=== PATIENT | male | born 1965 | race Caucasian/White ===

== ENCOUNTER 2020-02-10 11:09 | Inpatient (IN) | payer BC ==
[~2020-02-10] VITALS: Ht 193 cm; Wt 110.1 kg
[2020-02-10] VITALS (11 sets, daily range): BP systolic 102–150; BP diastolic 65–79
[2020-02-10] MEDS ORDERED: HEPARIN 25,000UTS/250ML PREMIX 250 ML IV ONE (11:15)
[2020-02-10] MEDS ORDERED: HEPARIN for IV BOLUS 10,000 UNIT/10 ML VIAL. IV ONE (11:15)
[2020-02-10] MEDS ORDERED: IODIXANOL 320 MG/ML 100 ML VIAL. ONE ×2 (11:20→11:59)
[2020-02-10] MEDS ORDERED: LIDOCAINE 1% Multi-Dose 20 ML VIAL. ONE (11:20)
--- NOTE | 2020-02-10 11:23 | PHYS DOC ---
Past Medical History Past Medical History: No Pertinent History Past Surgical History: No Surgical History Smoking Status: Current Some Day Smoker Alcohol Use: Occasionally Drug Use: None General Adult EDM: Chief Complaint: CHEST PAIN HPI: HPI: Patient is a 54 year old male who was brought here by EMS due to substernal chest pain, described as indigestion, bilateral arm tingling and numbness sensation with trouble breathing started about 30 minutes ago. EMS did an EKG and show ST segment elevation in lateral leads, they called here to activate code STEMI. Patient was given 325 mg of aspirin by EMS, no nitroglycerin was given. Patient felt much better now. Patient denies any history of diabetes or hypertension, no history of blood clot disorder, no family history of heart disease. Cardiac cath team and brick carrier Dr. Browning, came to ER to see patient and took the patient to [facility]. Review of Systems: Review of Systems: Constitutional: Denies fever or chills. [] Eyes: Denies change in visual acuity. [] HENT: Denies nasal congestion or sore throat. [] Respiratory: Denies cough or shortness of breath. [] Cardiovascular: Positive chest pain, no edema GI: Denies abdominal pain, nausea, vomiting, bloody stools or diarrhea. [] : Denies dysuria. [] Musculoskeletal: Denies back pain or joint pain. [] Integument: Denies rash. [] Neurologic: Denies headache, focal weakness or sensory changes. [] Endocrine: Denies polyuria or polydipsia. [] Lymphatic: Denies swollen glands. [] Psychiatric: Denies depression or anxiety. [] Heart Score: Risk Factors: Risk Factors: DM, Current or recent (<one month) smoker, HTN, HLP, family history of CAD, obesity. Risk Scores: Score 0 - 3: 2.5% MACE over next 6 weeks - Discharge Home Score 4 - 6: 20.3% MACE over next 6 weeks - Admit for Clinical Observation Score 7 - 10: 72.7% MACE over next 6 weeks - Early Invasive Strategies Current Medications: Current Medications Medications (Trade) Dose Ordered Sig/Les Start Time Stop Time Status Last Admin Dose Admin Heparin Sodium (Porcine) (Heparin Sodium) 4,000 unit 1X ONCE 02/10/20 11:15 02/10/20 11:16 UNV Heparin Sodium/ Dextrose 250 ml @ 0 mls/hr 1X ONCE 02/10/20 11:15 02/10/20 11:16 UNV Physical Exam: PE: Constitutional: Well developed, well nourished, no acute distress, non-toxic appearance. [] HENT: Normocephalic, atraumatic, bilateral external ears normal, oropharynx moist, no oral exudates, nose normal. [] Eyes: PERRLA, EOMI, conjunctiva normal, no discharge. [] Neck: Normal range of motion, no tenderness, supple, no stridor. [] Cardiovascular:Heart rate regular rhythm, no murmur [] Lungs & Thorax: Bilateral breath sounds clear to auscultation [] Abdomen: Bowel sounds normal, soft, no tenderness, no masses, no pulsatile masses. [] Skin: Warm, dry, no erythema, no rash. [] Back: No tenderness, no CVA tenderness. [] Extremities: No tenderness, no cyanosis, no clubbing, ROM intact, no edema. [] Neurologic: Alert and oriented X 3, normal motor function, normal sensory function, no focal deficits noted. [] Psychologic: Affect normal, judgement normal, mood normal. [] EKG: EKG: EKG was done at 1112, HEART RATE OF 137 BPM, ST SEGMENT ELEVATION IN V2, V3, V4,V5 Radiology/Procedures: Radiology/Procedures: [] Course & Med Decision Making: Course & Med Decision Making Pertinent Labs and Imaging studies reviewed. 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 The hospitalist doctor Dr. Danilo Parr was called who agrees TO admit the patient Dragon Disclaimer: Cyndi Disclaimer: This electronic medical record was generated, in whole or in part, using a voice recognition dictation system. Departure Departure Impression: Primary Impression: STEMI (ST elevation myocardial infarction) Disposition: ADMITTED INPATIENT Admitting Physician: FOSTER (DR. PARR) Condition: IMPROVED Justicifation of Admission Dx: Justifications for Admission: Justification of Admission Dx: Yes MN: Acute STEMI STONE MIRELES DO Feb 10, 2020 11:23
[2020-02-10 11:37] LABS: BASO # 0.2 x10^3/uL (0.0-0.2); BASO % 1 % (0-3); EOS # 0.1 x10^3/uL (0.0-0.7); EOS % 1 % (0-3); HEMOGLOBIN 16.5 g/dL (13.0-17.5); LYMPH # 1.9 x10^3/uL (1.0-4.8); LYMPH % 15 % (24-48); MEAN CORPUSCULAR HEMOGLOBIN 32 pg (25-35); MEAN CORPUSCULAR HGB CONC 34 g/dL (31-37); MEAN CORPUSCULAR VOLUME 93 fL (79-100); MONO # 0.7 x10^3/uL (0.0-1.1); MONO % 6 % (0-9); NEUT # 9.8 x10^3/uL (1.8-7.7); NEUT % 77 % (31-73); PLATELET COUNT 162 x10^3/uL (140-400); RED BLOOD COUNT 5.17 x10^6/uL (4.30-5.70); RED CELL DISTRIBUTION WIDTH 13.3 % (11.5-14.5); WHITE BLOOD COUNT 12.6 x10^3/uL (4.0-11.0)
[2020-02-10] MEDS ORDERED: BIVALIRUDIN 250 MG VIAL. IV ONE ×4 (11:44→12:15)
[2020-02-10] MEDS ORDERED: IODIXANOL 320 MG/ML 100 ML VIAL. IART ONE (11:45)
[2020-02-10] MEDS ORDERED: LIDOCAINE 1% Multi-Dose 20 ML VIAL. INJ ONE (11:45)
[2020-02-10] MEDS ORDERED: fentaNYL PF VIAL 100 MCG/2 ML VIAL IV ONE (11:45)
[2020-02-10] MEDS ORDERED: MIDAZOLAM HCL/PF 2 MG/2 ML VIAL. IV ONE (11:45)
[2020-02-10 11:48] LABS: PROTHROMBIN TIME PATIENT 12.3 SEC (11.7-14.0)
[2020-02-10 11:53] LABS: CREATININE 1.2 mg/dL (0.7-1.3); GFR 63.1; POTASSIUM 3.8 mmol/L (3.5-5.1)
[2020-02-10 11:59] LABS: ALBUMIN 3.4 g/dL (3.4-5.0); ALBUMIN/GLOBULIN RATIO 0.9 (1.0-1.7); MAGNESIUM 1.9 mg/dL (1.8-2.4); TOTAL BILIRUBIN 0.4 mg/dL (0.2-1.0); TOTAL PROTEIN 7.1 g/dL (6.4-8.2)
[2020-02-10] MEDS ORDERED: TICAGRELOR 90 MG TABLET. ONE (12:06)
[2020-02-10] MEDS ORDERED: TICAGRELOR 90 MG TABLET. PO ONE (12:15)
[2020-02-10] MEDS ORDERED: ONDANSETRON PF 4 MG/2 ML VIAL. ONE (12:18)
[2020-02-10] MEDS ORDERED: IV NORMAL SALINE 1000ML BAG 1,000 ML IV SCH (12:28)
[2020-02-10] MEDS ORDERED: ACETAMINOPHEN 325 MG TABLET. PO PRN (12:30)
[2020-02-10] MEDS ORDERED: LIDOCAINE 2% 100 MG/5 ML SYRINGE. IV PRN (12:30)
[2020-02-10] MEDS ORDERED: oxyCODONE/APAP 5/325 1 TAB TABLET PO PRN (12:30)
[2020-02-10] MEDS ORDERED: 0.9 % SODIUM CHLORIDE 10 ML DISP.SYRIN. IV PRN (12:30)
[2020-02-10] MEDS ORDERED: ONDANSETRON PF 4 MG/2 ML VIAL. IVP PRN ×2 (12:30→15:00)
[2020-02-10] MEDS ORDERED: AMIODARONE 150 MG in IV DEXTROSE 5% 100ML 100 ML IV PRN (12:30)
[2020-02-10] MEDS ORDERED: NITROGLYCERIN SUBLINGUAL 0.4 MG BOTTLE OF 25. SL PRN (12:30)
[2020-02-10] MEDS ORDERED: fentaNYL PF VIAL 100 MCG/2 ML VIAL IV PRN (12:30)
[2020-02-10] MEDS ORDERED: ONDANSETRON PF 4 MG/2 ML VIAL. IVP ONE (12:30)
[2020-02-10] MEDS ORDERED: ATROPINE 0.5 MG/5 ML DISP.SYRINGE. IV PRN (12:30)
[2020-02-10] MEDS ORDERED: MIDAZOLAM HCL/PF 2 MG/2 ML VIAL. ONE (12:57)
[2020-02-10] MEDS ORDERED: fentaNYL PF VIAL 100 MCG/2 ML VIAL ONE (12:57)
--- NOTE | 2020-02-10 14:55 | PDOC1 ---
History and Physical Date of Admission Date of Admission DATE: 02/10/20 TIME: 14:53 Identification/Chief Complaint Chief Complaint Epigastric pain Source Source: Patient History of Present Illness History of Present Illness Patient is a 54-year-old male with no significant past medical history who presents to the ER with complaints of worsening epigastric pain since this morning. He reports burning epigastric pain, with associated nausea, paresthesia of his hands, shortness of breath, and diaphoresis. States his symptoms were improved with burping. He initially attributed his symptoms to acid reflux, but contacted EMS when his symptoms did not improve. Patient was noted to have ST elevation on EKG and taken to the [facility]. Past Medical History Past Medical History Denies past medical history Past Surgical History Past Surgical History Dental procedures Family History Family History Denies significant family history Social History Smoke: 2 packs per day ALCOHOL: occassional Drugs: None Current Problem List Problem List Problems Medical Problems: (1) STEMI (ST elevation myocardial infarction) Status: Acute Current Medications Current Medications Current Medications Heparin Sodium (Porcine) (Heparin Sodium) 4,000 unit 1X ONCE IV Last administered on 02/10/20at 11:19; Start 02/10/20 at 11:15; Stop 02/10/20 at 11:43; Status DC Heparin Sodium/ Dextrose 250 ml @ 0 mls/hr 1X ONCE IV ; Start 02/10/20 at 11:15; Stop 02/10/20 at 11:43; Status DC Iodixanol (Visipaque 320) 100 ml STK-MED ONCE .ROUTE ; Start 02/10/20 at 11:20; Stop 02/10/20 at 11:20; Status DC Lidocaine HCl (Lidocaine 1% 20ml Vial) 20 ml STK-MED ONCE .ROUTE ; Start 02/10/20 at 11:20; Stop 02/10/20 at 11:20; Status DC Heparin Sodium/ Sodium Chloride 1,000 ml @ As Directed STK-MED ONCE .ROUTE ; Start 02/10/20 at 11:20; Stop 02/10/20 at 11:20; Status DC Heparin Sodium/ Sodium Chloride 500 ml @ As Directed STK-MED ONCE .ROUTE ; Start 02/10/20 at 11:35; Stop 02/10/20 at 11:36; Status DC Heparin Sodium/ Sodium Chloride (HEPARIN for ARTERIAL LINE FLUSH) 1,000 unit 1X ONCE IART Last administered on 02/10/20at 12:30; Start 02/10/20 at 11:45; Stop 02/10/20 at 11:46; Status DC Heparin Sodium/ Sodium Chloride (HEPARIN for ARTERIAL LINE FLUSH) 1,000 unit 1X ONCE IART Last administered on 02/10/20at 12:30; Start 02/10/20 at 11:45; Stop 02/10/20 at 11:46; Status DC Midazolam HCl (Versed) 2 mg 1X ONCE IV Last administered on 02/10/20at 12:32; Start 02/10/20 at 11:45; Stop 02/10/20 at 11:46; Status DC Fentanyl Citrate (Fentanyl 2ml Vial) 100 mcg 1X ONCE IV Last administered on 02/10/20at 12:33; Start 02/10/20 at 11:45; Stop 02/10/20 at 11:46; Status DC Iodixanol (Visipaque 320) 100 ml 1X ONCE IART Last administered on 02/10/20at 12:31; Start 02/10/20 at 11:45; Stop 02/10/20 at 11:46; Status DC Lidocaine HCl (Lidocaine 1% 20ml Vial) 20 ml 1X ONCE INJ Last administered on 02/10/20at 12:30; Start 02/10/20 at 11:45; Stop 02/10/20 at 11:46; Status DC Bivalirudin (Angiomax) 250 mg STK-MED ONCE IV ; Start 02/10/20 at 11:44; Stop 02/10/20 at 11:45; Status DC Dopamine HCl/ Dextrose 250 ml @ As Directed STK-MED ONCE IV ; Start 02/10/20 at 11:52; Stop 02/10/20 at 11:52; Status DC Dopamine HCl/ Dextrose 250 ml @ 21.3 mls/hr 1X ONCE IV Last administered on 02/10/20at 12:31; Start 02/10/20 at 12:00; Stop 02/10/20 at 23:44 Bivalirudin (Angiomax) 250 mg 1X ONCE IV Last administered on 02/10/20at 12:32; Start 02/10/20 at 12:00; Stop 02/10/20 at 12:01; Status DC Iodixanol (Visipaque 320) 100 ml STK-MED ONCE .ROUTE ; Start 02/10/20 at 11:59; Stop 02/10/20 at 11:59; Status DC Ticagrelor (Brilinta) 90 mg STK-MED ONCE .ROUTE ; Start 02/10/20 at 12:06; Stop 02/10/20 at 12:07; Status DC Bivalirudin (Angiomax) 250 mg STK-MED ONCE IV ; Start 02/10/20 at 12:07; Stop 02/10/20 at 12:07; Status DC Bivalirudin (Angiomax) 250 mg 1X ONCE IV Last administered on 02/10/20at 12:32; Start 02/10/20 at 12:15; Stop 02/10/20 at 12:16; Status DC Ticagrelor (Brilinta) 180 mg 1X ONCE PO Last administered on 02/10/20at 12:33; Start 02/10/20 at 12:15; Stop 02/10/20 at 12:16; Status DC Ondansetron HCl (Zofran) 4 mg STK-MED ONCE .ROUTE ; Start 02/10/20 at 12:18; Stop 02/10/20 at 12:18; Status DC Ondansetron HCl (Zofran) 4 mg 1X ONCE IVP Last administered on 02/10/20at 12:34; Start 02/10/20 at 12:30; Stop 02/10/20 at 12:31; Status DC Sodium Chloride (Normal Saline Flush) 3 ml QSHIFT PRN IV AFTER MEDS AND BLOOD DRAWS; Start 02/10/20 at 12:30 Sodium Chloride 1,000 ml @ 60 mls/hr [id number] IV ; Start 02/10/20 at 12:28; Stop 02/10/20 at 20:27 Aspirin (Ecotrin) 81 mg DAILYWBKFT PO ; Start 02/11/20 at 08:00 Clopidogrel Bisulfate (Plavix) 75 mg DAILYWBKFT PO ; Start 02/11/20 at 08:00 Metoprolol Tartrate (Lopressor) 12.5 mg BID PO ; Start 02/10/20 at 21:00 Lisinopril (Prinivil) 5 mg DAILY PO ; Start 02/11/20 at 09:00 Atorvastatin Calcium (Lipitor) 40 mg QHS PO ; Start 02/10/20 at 21:00 Acetaminophen (Tylenol) 650 mg PRN Q6HRS PRN PO MILD PAIN / TEMP > 100.3'F; Start 02/10/20 at 12:30 Fentanyl Citrate (Fentanyl 2ml Vial) 50 mcg PRN Q1HR PRN IV MODERATE OR SEVERE PAIN; Start 02/10/20 at 12:30 Ondansetron HCl (Zofran) 4 mg PRN Q6HRS PRN IVP NAUSEA/VOMITING; Start 02/10/20 at 12:30 Nitroglycerin (Nitrostat) 0.4 mg PRN Q5MIN PRN SL CHEST PAIN; Start 02/10/20 at 12:30 Amiodarone HCl 150 mg/Dextrose 103 ml @ 600 mls/hr 1X PRN PRN IV FOR VENTRICULAR TACHYCARDIA; Start 02/10/20 at 12:30 Lidocaine HCl (Lidocaine HCl 2% Abboject) 100 mg 1X PRN PRN IV FOR VENTRICULAR TACHYCARDIA; Start 02/10/20 at 12:30 Atropine Sulfate (ATROPINE 0.5mg SYRINGE) 0.5 mg PRN 1X PRN IV BRADYCARDIA; Start 02/10/20 at 12:30 Oxycodone/ Acetaminophen (Percocet 5/325) 1 tab PRN Q4HRS PRN PO MILD PAIN 1-3; Start 02/10/20 at 12:30 Fentanyl Citrate (Fentanyl 2ml Vial) 100 mcg STK-MED ONCE .ROUTE ; Start 02/10/20 at 12:57; Stop 02/10/20 at 12:57; Status DC Midazolam HCl (Versed) 2 mg STK-MED ONCE .ROUTE ; Start 02/10/20 at 12:57; Stop 02/10/20 at 12:58; Status DC Allergies Allergies: Coded Allergies: No Known Drug Allergies (Unverified , 02/10/20) ROS General: No: Chills, Fatigue PSYCHOLOGICAL ROS: No: Anxiety, Depression Eyes: No Blurry vision, No Loss of vision HEENT: No: Heacaches, Hearing change, Sinus pain, Sore Throat ALLERGY AND IMMUNOLOGY: No: Itchy/Watery Eyes, Nasal Congestion Hematological and Lymphatic: No: Bleeding Problems, Blood Clots Respiratory: YES: Shortness of breath; No: Cough, Pleuritic Pain Gastrointestinal: Yes Abdominal Pain Genitourinary: No Dysuria, No Frequency Musculoskeletal: No Joint Pain, No Joint Stiffness, No Joint Swelling Neurological: Yes Numbness/Tingling Skin: Yes Other (Diaphoresis); No Pruritus, No Rash Physical Exam General: Alert, Oriented X3, Cooperative, No acute distress HEENT: PERRLA Lungs: Clear to auscultation, Normal air movement Heart: RRR Cardiovascular: S1, S2 Abdomen: Normal bowel sounds, Soft Extremities: No clubbing, No cyanosis, No edema Skin: No rashes, No breakdown Neuro: Normal tone, Sensation intact Psych/Mental Status: Mental status NL Vitals Vitals Vital Signs Date Time Temp Pulse Resp B/P (MAP) Pulse Ox O2 Delivery O2 Flow Rate FiO2 02/10/20 13:33 98.0 78 16 147/76 (99) 95 Nasal Cannula 2.0 98.0 Labs Labs Laboratory Tests Test 02/10/20 11:20 White Blood Count 12.6 x10^3/uL (4.0-11.0) Red Blood Count 5.17 x10^6/uL (4.30-5.70) Hemoglobin 16.5 g/dL (13.0-17.5) Hematocrit 48.0 % (39.0-53.0) Mean Corpuscular Volume 93 fL (79-100) Mean Corpuscular Hemoglobin 32 pg (25-35) Mean Corpuscular Hemoglobin Concent 34 g/dL (31-37) Red Cell Distribution Width 13.3 % (11.5-14.5) Platelet Count 162 x10^3/uL (140-400) Neutrophils (%) (Auto) 77 % (31-73) Lymphocytes (%) (Auto) 15 % (24-48) Monocytes (%) (Auto) 6 % (0-9) Eosinophils (%) (Auto) 1 % (0-3) Basophils (%) (Auto) 1 % (0-3) Neutrophils # (Auto) 9.8 x10^3/uL (1.8-7.7) Lymphocytes # (Auto) 1.9 x10^3/uL (1.0-4.8) Monocytes # (Auto) 0.7 x10^3/uL (0.0-1.1) Eosinophils # (Auto) 0.1 x10^3/uL (0.0-0.7) Basophils # (Auto) 0.2 x10^3/uL (0.0-0.2) Prothrombin Time 12.3 SEC (11.7-14.0) Prothromb Time International Ratio 1.0 (0.8-1.1) Activated Partial Thromboplast Time 29 SEC (24-38) Sodium Level 138 mmol/L (136-145) Potassium Level 3.8 mmol/L (3.5-5.1) Chloride Level 107 mmol/L (98-107) Carbon Dioxide Level 23 mmol/L (21-32) Anion Gap 8 (6-14) Blood Urea Nitrogen 13 mg/dL (8-26) Creatinine 1.2 mg/dL (0.7-1.3) Estimated GFR (Cockcroft-Gault) 63.1 BUN/Creatinine Ratio 11 (6-20) Glucose Level 96 mg/dL (70-99) Calcium Level 9.0 mg/dL (8.5-10.1) Magnesium Level 1.9 mg/dL (1.8-2.4) Total Bilirubin 0.4 mg/dL (0.2-1.0) Aspartate Amino Transf (AST/SGOT) 10 U/L (15-37) Alanine Aminotransferase (ALT/SGPT) 23 U/L (16-63) Alkaline Phosphatase 58 U/L (46-116) Troponin I Quantitative 0.078 ng/mL (0.000-0.055) JF-Ygd-L-Type Natriuretic Peptide 36 pg/mL (0-124) Total Protein 7.1 g/dL (6.4-8.2) Albumin 3.4 g/dL (3.4-5.0) Albumin/Globulin Ratio 0.9 (1.0-1.7) Lipase 232 U/L (73-393) Laboratory Tests Test 02/10/20 11:20 White Blood Count 12.6 x10^3/uL (4.0-11.0) Red Blood Count 5.17 x10^6/uL (4.30-5.70) Hemoglobin 16.5 g/dL (13.0-17.5) Hematocrit 48.0 % (39.0-53.0) Mean Corpuscular Volume 93 fL (79-100) Mean Corpuscular Hemoglobin 32 pg (25-35) Mean Corpuscular Hemoglobin Concent 34 g/dL (31-37) Red Cell Distribution Width 13.3 % (11.5-14.5) Platelet Count 162 x10^3/uL (140-400) Neutrophils (%) (Auto) 77 % (31-73) Lymphocytes (%) (Auto) 15 % (24-48) Monocytes (%) (Auto) 6 % (0-9) Eosinophils (%) (Auto) 1 % (0-3) Basophils (%) (Auto) 1 % (0-3) Neutrophils # (Auto) 9.8 x10^3/uL (1.8-7.7) Lymphocytes # (Auto) 1.9 x10^3/uL (1.0-4.8) Monocytes # (Auto) 0.7 x10^3/uL (0.0-1.1) Eosinophils # (Auto) 0.1 x10^3/uL (0.0-0.7) Basophils # (Auto) 0.2 x10^3/uL (0.0-0.2) Prothrombin Time 12.3 SEC (11.7-14.0) Prothromb Time International Ratio 1.0 (0.8-1.1) Activated Partial Thromboplast Time 29 SEC (24-38) Sodium Level 138 mmol/L (136-145) Potassium Level 3.8 mmol/L (3.5-5.1) Chloride Level 107 mmol/L (98-107) Carbon Dioxide Level 23 mmol/L (21-32) Anion Gap 8 (6-14) Blood Urea Nitrogen 13 mg/dL (8-26) Creatinine 1.2 mg/dL (0.7-1.3) Estimated GFR (Cockcroft-Gault) 63.1 BUN/Creatinine Ratio 11 (6-20) Glucose Level 96 mg/dL (70-99) Calcium Level 9.0 mg/dL (8.5-10.1) Magnesium Level 1.9 mg/dL (1.8-2.4) Total Bilirubin 0.4 mg/dL (0.2-1.0) Aspartate Amino Transf (AST/SGOT) 10 U/L (15-37) Alanine Aminotransferase (ALT/SGPT) 23 U/L (16-63) Alkaline Phosphatase 58 U/L (46-116) Troponin I Quantitative 0.078 ng/mL (0.000-0.055) TR-Vkr-N-Type Natriuretic Peptide 36 pg/mL (0-124) Total Protein 7.1 g/dL (6.4-8.2) Albumin 3.4 g/dL (3.4-5.0) Albumin/Globulin Ratio 0.9 (1.0-1.7) Lipase 232 U/L (73-393) VTE Prophylaxis Ordered VTE Prophylaxis Devices: No VTE Pharmacological Prophylaxi: Yes Assessment/Plan Assessment/Plan STEMI Plan: Patient was evaluated in the ICU status post PCI with stent placement. Consults to cardiology. cafeteria monitor. Metoprolol, lisinopril, atorvastatin, aspirin, Plavix.. Nitroglycerin as needed, Percocet as needed, Zofran as needed. Patient notes his sister is a surrogate decision-maker. Full code. Justifications for Admission Other Justification CARMEL PARR MD Feb 10, 2020 14:55
[2020-02-10] MEDS: HEPARIN for SUB-Q USE 5,000 UNIT/ML VIAL. SQ SCH ×2 (15:30→21:58)
--- NOTE | 2020-02-10 15:46 | EKG ---
[facility] [address] [place] [address] Test Date: 2020-02-10 Test Time: 15:43:05 Pat Name: ALAN LEWIS Department: Room: Gender: M Philosophy Instructor: KRISS : 1965 Requested By: STONE MIRELES Order Number: [id number] Reading MD: Measurements Intervals Vendor Rate: 76 P: 62 TN: 166 QRS: -39 QRSD: 82 T: 35 QT: 322 QTc: 366 Interpretive Statements SINUS RHYTHM ABNORMAL LEFT AXIS DEVIATION LOW LIMB LEAD VOLTAGE QRS(T) CONTOUR ABNORMALITY CONSISTENT WITH ANTERIOR INFARCT PROBABLY OLD ABNORMAL ECG RI6.02 No previous ECG available for comparison
--- NOTE | 2020-02-10 18:28 | CARD ---
MR#: [id number] Date of Study: 02/10/2020 Ordering Physician: STONE MIRELES, Referring Physician: STONE MIRELES, Tech: Leelee Dahl RT (R) APPROVED REPORT Procedures Selective coronary angiogram Drug-eluting stent placement to an occluded mid LAD. The patient is a 54-year-old male who was brought to the emergency room with 1-1/2 hours of chest xi n. He was seen in the emergency room and an EKG showed anterior ST elevation consistent with an ST e levated myocardial infarction probably involving the LAD. He was treated with aspirin and IV hepari n. He has no home medications. He denied any history of coronary disease or congestive heart failur e. He denied any allergies to medications. Recommendation was for emergency cardiac catheterization with probable revascularization. Risk and benefits were discussed with the patient. He gave consen t to proceed. Informed consent was obtained and the patient was brought emergently to the catheterization lab. The area of the right femoral artery was prepared in the usual manner with Betadine, sterile draping a l ocal anesthetic. An 18-gauge needle was used to enter the right femoral artery, a wire placed and a 6 Maltese sheath placed over the wire. All catheter exchanges were over a J-wire. A 6 Maltese Masoud s diagnostic right catheter was advanced and used to engage the right coronary artery. Sequential in jections of various views were obtained. A XB 3.5 left guide was then advanced and used to engage th e left system. Sequential injections of various views were obtained. Images showed a mid occlusion of the LAD post the first diagonal. We proceeded to revascularize the vessel. Angiomax as per protocol was administered. A PT choice wire was used to cross the lesion. Initial d ilatations with a 2.5 x 15 Emerge balloon with 2 inflations at 8 logan for 15 seconds. Following this a 3.0 x 24 mm Promus Elite drug-eluting stent was deployed with 1 inflation at 15 logan for 15 seconds. Residual lesion was 0%. Flow was restored to a good size LAD which wrapped around the apex. The p atient was monitored for 10 minutes and then the guiding system was removed. A pigtail was advanced the ascending aorta. However we did not attempt to pass to the left ventricle secondary to increased arrhythmias with the patient. The catheter was removed from the patient. Injection of the sheath s howed normal placement. The sheath was removed and sealed with an Angio-Seal device. The patient wa s then moved to the ICU. Pain decreased to 1 out of 10. Rhythm and blood pressure stabilized. Findings. Hemodynamics. Aortic root pressure of 106/78. Coronaries. Left main. The left main was a normal size vessel with no lesions. Left anterior descending. The LAD was a moderate to moderately large vessel with a mid occlusion. Left circumflex. The left circumflex was a moderate size vessel with a mid 15% lesion. Right coronary artery. The right coronary is a moderate to moderately large vessel with proximal irr egular 40 to 50% lesion. <Conclusion> ST elevated myocardial infarction secondary to a mid LAD occlusion. Moderate irregular lesion in the right coronary artery. Successful stenting of the LAD lesion with a drug-eluting stent with 0% residual. Signed by : Juan Diego Sharif MD Electronically Approved : 02/10/2020 18:27:55
--- NOTE | 2020-02-10 18:33 | PDOC2 ---
CONSULT Date of Consult Date of Consult DATE: 02/10/20 TIME: 18:29 Reason for Consult Reason for Consult: Chest pain, ST elevated myocardial infarction Referring Physician Referring Physician: Dr. Desai Identification/Chief Complaint Chief Complaint Chest pain Source Source: Chart review, Patient History of Present Illness Reason for Visit: The patient is a 54-year-old male with a history of tobacco abuse who developed chest pain and paramedics were called. He was brought to the emergency room and an emergent EKG showed ST elevation in the anterior leads suggestive of an anterior wall myocardial infarction. Patient reports no history of coronary disease or congestive heart failure. He denies any home medications. He has no allergies. However he does smoke cigarettes. He was initially treated with aspirin and IV heparin with continued pain Past Medical History Cardiovascular: HTN Past Surgical History Past Surgical History: No pertinent history Family History Family History: Hypertension Social History 2 packs per day ALCOHOL: occassional Drugs: None Current Problem List Problem List Problems Medical Problems: (1) STEMI (ST elevation myocardial infarction) Status: Acute Current Medications Current Medications Current Medications Heparin Sodium (Porcine) (Heparin Sodium) 4,000 unit 1X ONCE IV Last administered on 02/10/20at 11:19; Start 02/10/20 at 11:15; Stop 02/10/20 at 11:43; Status DC Heparin Sodium/ Dextrose 250 ml @ 0 mls/hr 1X ONCE IV ; Start 02/10/20 at 11:15; Stop 02/10/20 at 11:43; Status DC Iodixanol (Visipaque 320) 100 ml STK-MED ONCE .ROUTE ; Start 02/10/20 at 11:20; Stop 02/10/20 at 11:20; Status DC Lidocaine HCl (Lidocaine 1% 20ml Vial) 20 ml STK-MED ONCE .ROUTE ; Start 02/10/20 at 11:20; Stop 02/10/20 at 11:20; Status DC Heparin Sodium/ Sodium Chloride 1,000 ml @ As Directed STK-MED ONCE .ROUTE ; Start 02/10/20 at 11:20; Stop 02/10/20 at 11:20; Status DC Heparin Sodium/ Sodium Chloride 500 ml @ As Directed STK-MED ONCE .ROUTE ; Start 02/10/20 at 11:35; Stop 02/10/20 at 11:36; Status DC Heparin Sodium/ Sodium Chloride (HEPARIN for ARTERIAL LINE FLUSH) 1,000 unit 1X ONCE IART Last administered on 02/10/20at 12:30; Start 02/10/20 at 11:45; Stop 02/10/20 at 11:46; Status DC Heparin Sodium/ Sodium Chloride (HEPARIN for ARTERIAL LINE FLUSH) 1,000 unit 1X ONCE IART Last administered on 02/10/20at 12:30; Start 02/10/20 at 11:45; Stop 02/10/20 at 11:46; Status DC Midazolam HCl (Versed) 2 mg 1X ONCE IV Last administered on 02/10/20at 12:32; Start 02/10/20 at 11:45; Stop 02/10/20 at 11:46; Status DC Fentanyl Citrate (Fentanyl 2ml Vial) 100 mcg 1X ONCE IV Last administered on 02/10/20at 12:33; Start 02/10/20 at 11:45; Stop 02/10/20 at 11:46; Status DC Iodixanol (Visipaque 320) 100 ml 1X ONCE IART Last administered on 02/10/20at 12:31; Start 02/10/20 at 11:45; Stop 02/10/20 at 11:46; Status DC Lidocaine HCl (Lidocaine 1% 20ml Vial) 20 ml 1X ONCE INJ Last administered on 02/10/20at 12:30; Start 02/10/20 at 11:45; Stop 02/10/20 at 11:46; Status DC Bivalirudin (Angiomax) 250 mg STK-MED ONCE IV ; Start 02/10/20 at 11:44; Stop 02/10/20 at 11:45; Status DC Dopamine HCl/ Dextrose 250 ml @ As Directed STK-MED ONCE IV ; Start 02/10/20 at 11:52; Stop 02/10/20 at 11:52; Status DC Dopamine HCl/ Dextrose 250 ml @ 21.3 mls/hr 1X ONCE IV Last administered on 02/10/20at 12:31; Start 02/10/20 at 12:00; Stop 02/10/20 at 23:44 Bivalirudin (Angiomax) 250 mg 1X ONCE IV Last administered on 02/10/20at 12:32; Start 02/10/20 at 12:00; Stop 02/10/20 at 12:01; Status DC Iodixanol (Visipaque 320) 100 ml STK-MED ONCE .ROUTE ; Start 02/10/20 at 11:59; Stop 02/10/20 at 11:59; Status DC Ticagrelor (Brilinta) 90 mg STK-MED ONCE .ROUTE ; Start 02/10/20 at 12:06; Stop 02/10/20 at 12:07; Status DC Bivalirudin (Angiomax) 250 mg STK-MED ONCE IV ; Start 02/10/20 at 12:07; Stop 02/10/20 at 12:07; Status DC Bivalirudin (Angiomax) 250 mg 1X ONCE IV Last administered on 02/10/20at 12:32; Start 02/10/20 at 12:15; Stop 02/10/20 at 12:16; Status DC Ticagrelor (Brilinta) 180 mg 1X ONCE PO Last administered on 02/10/20at 12:33; Start 02/10/20 at 12:15; Stop 02/10/20 at 12:16; Status DC Ondansetron HCl (Zofran) 4 mg STK-MED ONCE .ROUTE ; Start 02/10/20 at 12:18; Stop 02/10/20 at 12:18; Status DC Ondansetron HCl (Zofran) 4 mg 1X ONCE IVP Last administered on 02/10/20at 12:34; Start 02/10/20 at 12:30; Stop 02/10/20 at 12:31; Status DC Sodium Chloride (Normal Saline Flush) 3 ml QSHIFT PRN IV AFTER MEDS AND BLOOD DRAWS; Start 02/10/20 at 12:30 Sodium Chloride 1,000 ml @ 60 mls/hr [id number] IV Last administered on 02/10/20at 12:28; Start 02/10/20 at 12:28; Stop 02/10/20 at 20:27 Aspirin (Ecotrin) 81 mg DAILYWBKFT PO ; Start 02/11/20 at 08:00 Clopidogrel Bisulfate (Plavix) 75 mg DAILYWBKFT PO ; Start 02/11/20 at 08:00 Metoprolol Tartrate (Lopressor) 12.5 mg BID PO ; Start 02/10/20 at 21:00 Lisinopril (Prinivil) 5 mg DAILY PO ; Start 02/11/20 at 09:00 Atorvastatin Calcium (Lipitor) 40 mg QHS PO ; Start 02/10/20 at 21:00 Acetaminophen (Tylenol) 650 mg PRN Q6HRS PRN PO MILD PAIN / TEMP > 100.3'F; Start 02/10/20 at 12:30 Fentanyl Citrate (Fentanyl 2ml Vial) 50 mcg PRN Q1HR PRN IV MODERATE OR SEVERE PAIN; Start 02/10/20 at 12:30 Ondansetron HCl (Zofran) 4 mg PRN Q6HRS PRN IVP NAUSEA/VOMITING; Start 02/10/20 at 12:30 Nitroglycerin (Nitrostat) 0.4 mg PRN Q5MIN PRN SL CHEST PAIN; Start 02/10/20 at 12:30 Amiodarone HCl 150 mg/Dextrose 103 ml @ 600 mls/hr 1X PRN PRN IV FOR VENTRICULAR TACHYCARDIA; Start 02/10/20 at 12:30 Lidocaine HCl (Lidocaine HCl 2% Abboject) 100 mg 1X PRN PRN IV FOR VENTRICULAR TACHYCARDIA; Start 02/10/20 at 12:30 Atropine Sulfate (ATROPINE 0.5mg SYRINGE) 0.5 mg PRN 1X PRN IV BRADYCARDIA; Start 02/10/20 at 12:30 Oxycodone/ Acetaminophen (Percocet 5/325) 1 tab PRN Q4HRS PRN PO MILD PAIN 1-3; Start 02/10/20 at 12:30 Fentanyl Citrate (Fentanyl 2ml Vial) 100 mcg STK-MED ONCE .ROUTE ; Start 02/10/20 at 12:57; Stop 02/10/20 at 12:57; Status DC Midazolam HCl (Versed) 2 mg STK-MED ONCE .ROUTE ; Start 02/10/20 at 12:57; Stop 02/10/20 at 12:58; Status DC Ondansetron HCl (Zofran) 4 mg PRN Q6HRS PRN IVP NAUSEA/VOMITING; Start 02/10/20 at 15:00 Docusate Sodium (Colace) 100 mg BID PO ; Start 02/10/20 at 21:00 Heparin Sodium (Porcine) (Heparin Sodium) 5,000 unit Q8HRS SQ Last administered on 02/10/20at 15:30; Start 02/10/20 at 15:30 Allergies Allergies: Coded Allergies: No Known Drug Allergies (Unverified , 02/10/20) ROS Respiratory: YES: Shortness of breath Cardiovascular: yes Chest Pain Physical Exam General: moderate distress HEENT: Atraumatic Lungs: Clear to auscultation Heart: Regular rate Abdomen: Normal bowel sounds Vitals VITALS Vital Signs Date Time Temp Pulse Resp B/P (MAP) Pulse Ox O2 Delivery O2 Flow Rate FiO2 02/10/20 17:00 80 18 102/66 (78) 93 Room Air 02/10/20 16:00 98.3 98.3 02/10/20 13:33 2.0 Labs Labs Laboratory Tests Test 02/10/20 11:20 02/10/20 16:40 White Blood Count 12.6 x10^3/uL (4.0-11.0) Red Blood Count 5.17 x10^6/uL (4.30-5.70) Hemoglobin 16.5 g/dL (13.0-17.5) Hematocrit 48.0 % (39.0-53.0) Mean Corpuscular Volume 93 fL (79-100) Mean Corpuscular Hemoglobin 32 pg (25-35) Mean Corpuscular Hemoglobin Concent 34 g/dL (31-37) Red Cell Distribution Width 13.3 % (11.5-14.5) Platelet Count 162 x10^3/uL (140-400) Neutrophils (%) (Auto) 77 % (31-73) Lymphocytes (%) (Auto) 15 % (24-48) Monocytes (%) (Auto) 6 % (0-9) Eosinophils (%) (Auto) 1 % (0-3) Basophils (%) (Auto) 1 % (0-3) Neutrophils # (Auto) 9.8 x10^3/uL (1.8-7.7) Lymphocytes # (Auto) 1.9 x10^3/uL (1.0-4.8) Monocytes # (Auto) 0.7 x10^3/uL (0.0-1.1) Eosinophils # (Auto) 0.1 x10^3/uL (0.0-0.7) Basophils # (Auto) 0.2 x10^3/uL (0.0-0.2) Prothrombin Time 12.3 SEC (11.7-14.0) Prothromb Time International Ratio 1.0 (0.8-1.1) Activated Partial Thromboplast Time 29 SEC (24-38) Sodium Level 138 mmol/L (136-145) Potassium Level 3.8 mmol/L (3.5-5.1) Chloride Level 107 mmol/L (98-107) Carbon Dioxide Level 23 mmol/L (21-32) Anion Gap 8 (6-14) Blood Urea Nitrogen 13 mg/dL (8-26) Creatinine 1.2 mg/dL (0.7-1.3) Estimated GFR (Cockcroft-Gault) 63.1 BUN/Creatinine Ratio 11 (6-20) Glucose Level 96 mg/dL (70-99) Calcium Level 9.0 mg/dL (8.5-10.1) Magnesium Level 1.9 mg/dL (1.8-2.4) Total Bilirubin 0.4 mg/dL (0.2-1.0) Aspartate Amino Transf (AST/SGOT) 10 U/L (15-37) Alanine Aminotransferase (ALT/SGPT) 23 U/L (16-63) Alkaline Phosphatase 58 U/L (46-116) Troponin I Quantitative 0.078 ng/mL (0.000-0.055) 150.540 ng/mL (0.000-0.055) JI-Osv-N-Type Natriuretic Peptide 36 pg/mL (0-124) Total Protein 7.1 g/dL (6.4-8.2) Albumin 3.4 g/dL (3.4-5.0) Albumin/Globulin Ratio 0.9 (1.0-1.7) Lipase 232 U/L (73-393) Laboratory Tests Test 02/10/20 11:20 02/10/20 16:40 White Blood Count 12.6 x10^3/uL (4.0-11.0) Red Blood Count 5.17 x10^6/uL (4.30-5.70) Hemoglobin 16.5 g/dL (13.0-17.5) Hematocrit 48.0 % (39.0-53.0) Mean Corpuscular Volume 93 fL (79-100) Mean Corpuscular Hemoglobin 32 pg (25-35) Mean Corpuscular Hemoglobin Concent 34 g/dL (31-37) Red Cell Distribution Width 13.3 % (11.5-14.5) Platelet Count 162 x10^3/uL (140-400) Neutrophils (%) (Auto) 77 % (31-73) Lymphocytes (%) (Auto) 15 % (24-48) Monocytes (%) (Auto) 6 % (0-9) Eosinophils (%) (Auto) 1 % (0-3) Basophils (%) (Auto) 1 % (0-3) Neutrophils # (Auto) 9.8 x10^3/uL (1.8-7.7) Lymphocytes # (Auto) 1.9 x10^3/uL (1.0-4.8) Monocytes # (Auto) 0.7 x10^3/uL (0.0-1.1) Eosinophils # (Auto) 0.1 x10^3/uL (0.0-0.7) Basophils # (Auto) 0.2 x10^3/uL (0.0-0.2) Prothrombin Time 12.3 SEC (11.7-14.0) Prothromb Time International Ratio 1.0 (0.8-1.1) Activated Partial Thromboplast Time 29 SEC (24-38) Sodium Level 138 mmol/L (136-145) Potassium Level 3.8 mmol/L (3.5-5.1) Chloride Level 107 mmol/L (98-107) Carbon Dioxide Level 23 mmol/L (21-32) Anion Gap 8 (6-14) Blood Urea Nitrogen 13 mg/dL (8-26) Creatinine 1.2 mg/dL (0.7-1.3) Estimated GFR (Cockcroft-Gault) 63.1 BUN/Creatinine Ratio 11 (6-20) Glucose Level 96 mg/dL (70-99) Calcium Level 9.0 mg/dL (8.5-10.1) Magnesium Level 1.9 mg/dL (1.8-2.4) Total Bilirubin 0.4 mg/dL (0.2-1.0) Aspartate Amino Transf (AST/SGOT) 10 U/L (15-37) Alanine Aminotransferase (ALT/SGPT) 23 U/L (16-63) Alkaline Phosphatase 58 U/L (46-116) Troponin I Quantitative 0.078 ng/mL (0.000-0.055) 150.540 ng/mL (0.000-0.055) KZ-Zbj-S-Type Natriuretic Peptide 36 pg/mL (0-124) Total Protein 7.1 g/dL (6.4-8.2) Albumin 3.4 g/dL (3.4-5.0) Albumin/Globulin Ratio 0.9 (1.0-1.7) Lipase 232 U/L (73-393) Assessment/Plan Assessment/Plan 1. Chest pain. EKG is consistent with an acute anterior ST elevated myocardial infarction. Patient has been treated with aspirin and heparin. His pain has improved but continues. In this setting but I believe emergent catheterization with probable revascularization is indicated. The procedure as well as risks and benefits were discussed with patient. He gave consent to proceed. Patient will be brought emergently to the heart catheterization lab. 2. Tobacco abuse. 2 packs/day of smoking. We will further counseled the patient. 3. Unknown cholesterol level. Will check a cholesterol panel in the morning. Thank you for allowing us to participate in the care of your patient. ROMAN GRESHAM MD Feb 10, 2020 18:33
--- NOTE | 2020-02-10 20:00 | NUR ---
See assessment. Right groin dressing CDI. Site soft, no c/o pain or hematoma noted. Dopamine drip monitored by Darlene boyd RN.
[2020-02-10] MEDS: DOCUSATE SODIUM 100 MG CAPSULE. PO SCH (20:43)
[2020-02-10] MEDS: ATORVASTATIN CALCIUM 40 MG TABLET. PO SCH (20:43)
[2020-02-10] MEDS: METOPROLOL TART IMMED RELEASE 25 MG TABLET. PO SCH (20:44)
[2020-02-11] VITALS (15 sets, daily range): BP systolic 90–119; BP diastolic 64–74
[2020-02-11] MEDS: HEPARIN for SUB-Q USE 5,000 UNIT/ML VIAL. SQ SCH ×3 (05:52→20:57)
--- NOTE | 2020-02-11 06:14 | EKG ---
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 (Measurements might be questionable) RI6.02 No previous ECG available for comparison
[2020-02-11] MEDS: ASPIRIN ENTERIC COATED 81 MG TABLET.DR. PO SCH (08:59)
[2020-02-11] MEDS: LISINOPRIL 5 MG TABLET. PO SCH (09:00)
[2020-02-11] MEDS: DOCUSATE SODIUM 100 MG CAPSULE. PO SCH ×2 (09:00→20:54)
[2020-02-11] MEDS: CLOPIDOGREL BISULFATE 75 MG TABLET PO SCH (09:00)
[2020-02-11] MEDS: METOPROLOL TART IMMED RELEASE 25 MG TABLET. PO SCH (09:02)
--- NOTE | 2020-02-11 09:41 | EKG ---
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
[2020-02-11 09:56] LABS: BASO # 0.1 x10^3/uL (0.0-0.2); BASO % 1 % (0-3); EOS # 0.1 x10^3/uL (0.0-0.7); EOS % 1 % (0-3); HEMATOCRIT 43.8 % (39.0-53.0); HEMOGLOBIN 15.1 g/dL (13.0-17.5); LYMPH # 1.5 x10^3/uL (1.0-4.8); LYMPH % 21 % (24-48); MEAN CORPUSCULAR HEMOGLOBIN 32 pg (25-35); MEAN CORPUSCULAR HGB CONC 34 g/dL (31-37); MEAN CORPUSCULAR VOLUME 93 fL (79-100); MONO # 0.4 x10^3/uL (0.0-1.1); MONO % 6 % (0-9); NEUT # 5.3 x10^3/uL (1.8-7.7); NEUT % 72 % (31-73); PLATELET COUNT 146 x10^3/uL (140-400); RED BLOOD COUNT 4.71 x10^6/uL (4.30-5.70); RED CELL DISTRIBUTION WIDTH 13.1 % (11.5-14.5); WHITE BLOOD COUNT 7.3 x10^3/uL (4.0-11.0)
[2020-02-11 10:21] LABS: CALCIUM 8.9 mg/dL (8.5-10.1); CHOLESTEROL/HDL RATIO 7.6; CREATININE 1.2 mg/dL (0.7-1.3); GFR 63.1; POTASSIUM 3.5 mmol/L (3.5-5.1)
--- NOTE | 2020-02-11 11:14 | NUR ---
SS following for discharge planning. SS reviewed pt chart and discussed with pt RN. Pt is from home and is currently on room air. Cardiology following. Pt had heart cath on 02/10/2020. SS will continue to follow for discharge planning.
--- NOTE | 2020-02-11 11:20 | PDOC ---
[employer] PROGRESS NOTE Date of Service DOS: DATE: 02/11/20 TIME: 11:18 Chief Complaint Chief Complaint Acute myocardial infarction with max troponin 150 Status post cardiac cath with stent placement History of Present Illness History of Present Illness 02/11/2020 Patient seen and examined in the ICU His troponin peaked at 150 is now trending down to 83 Chart reviewed Discussed with case management Discussed with RN Vitals/I&O Vitals/I&O: Vital Signs Date Time Temp Pulse Resp B/P (MAP) Pulse Ox O2 Delivery O2 Flow Rate FiO2 02/11/20 09:02 66 106/73 02/11/20 08:00 Room Air 02/11/20 06:19 12 94 02/11/20 04:00 99.0 99.0 02/10/20 13:33 2.0 I & O 02/10/20 02/10/20 02/11/20 15:00 23:00 07:00 Intake Total 0 ml 0 ml 1263 ml Output Total 300 ml 225 ml 550 ml Balance -300 ml -225 ml 713 ml Physical Exam General: moderate distress Heart: Regular rate Abdomen: Normal bowel sounds Extremities: No clubbing, No cyanosis, No edema Skin: No rashes, No breakdown Labs Labs: Laboratory Tests Test 02/10/20 11:20 02/10/20 16:40 02/10/20 22:10 02/11/20 09:35 White Blood Count 12.6 x10^3/uL (4.0-11.0) 7.3 x10^3/uL (4.0-11.0) Red Blood Count 5.17 x10^6/uL (4.30-5.70) 4.71 x10^6/uL (4.30-5.70) Hemoglobin 16.5 g/dL (13.0-17.5) 15.1 g/dL (13.0-17.5) Hematocrit 48.0 % (39.0-53.0) 43.8 % (39.0-53.0) Mean Corpuscular Volume 93 fL (79-100) 93 fL (79-100) Mean Corpuscular Hemoglobin 32 pg (25-35) 32 pg (25-35) Mean Corpuscular Hemoglobin Concent 34 g/dL (31-37) 34 g/dL (31-37) Red Cell Distribution Width 13.3 % (11.5-14.5) 13.1 % (11.5-14.5) Platelet Count 162 x10^3/uL (140-400) 146 x10^3/uL (140-400) Neutrophils (%) (Auto) 77 % (31-73) 72 % (31-73) Lymphocytes (%) (Auto) 15 % (24-48) 21 % (24-48) Monocytes (%) (Auto) 6 % (0-9) 6 % (0-9) Eosinophils (%) (Auto) 1 % (0-3) 1 % (0-3) Basophils (%) (Auto) 1 % (0-3) 1 % (0-3) Neutrophils # (Auto) 9.8 x10^3/uL (1.8-7.7) 5.3 x10^3/uL (1.8-7.7) Lymphocytes # (Auto) 1.9 x10^3/uL (1.0-4.8) 1.5 x10^3/uL (1.0-4.8) Monocytes # (Auto) 0.7 x10^3/uL (0.0-1.1) 0.4 x10^3/uL (0.0-1.1) Eosinophils # (Auto) 0.1 x10^3/uL (0.0-0.7) 0.1 x10^3/uL (0.0-0.7) Basophils # (Auto) 0.2 x10^3/uL (0.0-0.2) 0.1 x10^3/uL (0.0-0.2) Prothrombin Time 12.3 SEC (11.7-14.0) Prothromb Time International Ratio 1.0 (0.8-1.1) Activated Partial Thromboplast Time 29 SEC (24-38) Sodium Level 138 mmol/L (136-145) 137 mmol/L (136-145) Potassium Level 3.8 mmol/L (3.5-5.1) 3.5 mmol/L (3.5-5.1) Chloride Level 107 mmol/L (98-107) 104 mmol/L (98-107) Carbon Dioxide Level 23 mmol/L (21-32) 23 mmol/L (21-32) Anion Gap 8 (6-14) 10 (6-14) Blood Urea Nitrogen 13 mg/dL (8-26) 13 mg/dL (8-26) Creatinine 1.2 mg/dL (0.7-1.3) 1.2 mg/dL (0.7-1.3) Estimated GFR (Cockcroft-Gault) 63.1 63.1 BUN/Creatinine Ratio 11 (6-20) Glucose Level 96 mg/dL (70-99) 117 mg/dL (70-99) Calcium Level 9.0 mg/dL (8.5-10.1) 8.9 mg/dL (8.5-10.1) Magnesium Level 1.9 mg/dL (1.8-2.4) 2.0 mg/dL (1.8-2.4) Total Bilirubin 0.4 mg/dL (0.2-1.0) Aspartate Amino Transf (AST/SGOT) 10 U/L (15-37) Alanine Aminotransferase (ALT/SGPT) 23 U/L (16-63) Alkaline Phosphatase 58 U/L (46-116) Troponin I Quantitative 0.078 ng/mL (0.000-0.055) 150.540 ng/mL (0.000-0.055) 84.377 ng/mL (0.000-0.055) FP-Ens-H-Type Natriuretic Peptide 36 pg/mL (0-124) Total Protein 7.1 g/dL (6.4-8.2) Albumin 3.4 g/dL (3.4-5.0) Albumin/Globulin Ratio 0.9 (1.0-1.7) Lipase 232 U/L (73-393) Triglycerides Level 102 mg/dL (0-150) Cholesterol Level 235 mg/dL (0-200) LDL Cholesterol, Calculated 184 mg/dL (0-100) VLDL Cholesterol, Calculated 20 mg/dL (0-40) Non-HDL Cholesterol Calculated 204 mg/dL (0-129) HDL Cholesterol 31 mg/dL (40-60) Cholesterol/HDL Ratio 7.6 Thyroid Stimulating Hormone (TSH) 1.039 uIU/mL (0.358-3.74) Assessment and Plan Assessmemt and Plan Problems Medical Problems: (1) STEMI (ST elevation myocardial infarction) Status: Acute Acute myocardial infarction with max troponin 150 Status post cardiac cath with stent placement Plan Cardiac monitoring Wound care Cardiac cocktail including statins beta-blockers DAVID inhibitor's antiplatelet drugs plus minus nitro plus minus diuretics Appreciate cardiac rapid intervention Home meds DVT prophylaxis Full code Comment Review of Relevant I have reviewed the following items hari (where applicable) has been applied. Medications: Current Medications Medications (Trade) Dose Ordered Sig/Les Route PRN Reason Start Time Stop Time Status Last Admin Dose Admin Heparin Sodium/ Sodium Chloride (HEPARIN for ARTERIAL LINE FLUSH) 1,000 unit 1X ONCE IART 02/10/20 11:45 02/10/20 11:46 DC 02/10/20 12:30 Heparin Sodium/ Sodium Chloride (HEPARIN for ARTERIAL LINE FLUSH) 1,000 unit 1X ONCE IART 02/10/20 11:45 02/10/20 11:46 DC 02/10/20 12:30 Midazolam HCl (Versed) 2 mg 1X ONCE IV 02/10/20 11:45 02/10/20 11:46 DC 02/10/20 12:32 Fentanyl Citrate (Fentanyl 2ml Vial) 100 mcg 1X ONCE IV 02/10/20 11:45 02/10/20 11:46 DC 02/10/20 12:33 Iodixanol (Visipaque 320) 100 ml 1X ONCE IART 02/10/20 11:45 02/10/20 11:46 DC 02/10/20 12:31 Lidocaine HCl (Lidocaine 1% 20ml Vial) 20 ml 1X ONCE INJ 02/10/20 11:45 02/10/20 11:46 DC 02/10/20 12:30 Dopamine HCl/ Dextrose 250 ml @ 21.3 mls/hr 1X ONCE IV 02/10/20 12:00 02/10/20 23:44 DC 02/10/20 12:31 Bivalirudin (Angiomax) 250 mg 1X ONCE IV 02/10/20 12:00 02/10/20 12:01 DC 02/10/20 12:32 Bivalirudin (Angiomax) 250 mg 1X ONCE IV 02/10/20 12:15 02/10/20 12:16 DC 02/10/20 12:32 Ticagrelor (Brilinta) 180 mg 1X ONCE PO 02/10/20 12:15 02/10/20 12:16 DC 02/10/20 12:33 Ondansetron HCl (Zofran) 4 mg 1X ONCE IVP 02/10/20 12:30 02/10/20 12:31 DC 02/10/20 12:34 Sodium Chloride 1,000 ml @ 60 mls/hr [id number] IV 02/10/20 12:28 02/10/20 20:27 DC 02/10/20 12:28 Aspirin (Ecotrin) 81 mg DAILYWBKFT PO 02/11/20 08:00 02/11/20 08:59 Clopidogrel Bisulfate (Plavix) 75 mg DAILYWBKFT PO 02/11/20 08:00 02/11/20 09:00 Metoprolol Tartrate (Lopressor) 12.5 mg BID PO 02/10/20 21:00 02/11/20 09:02 Lisinopril (Prinivil) 5 mg DAILY PO 02/11/20 09:00 02/11/20 09:00 Atorvastatin Calcium (Lipitor) 40 mg QHS PO 02/10/20 21:00 02/10/20 20:43 Docusate Sodium (Colace) 100 mg BID PO 02/10/20 21:00 02/11/20 09:00 Heparin Sodium (Porcine) (Heparin Sodium) 5,000 unit Q8HRS SQ 02/10/20 15:30 02/11/20 05:52 Dopamine HCl/ Dextrose 250 ml @ 20.513 mls/ hr 1X ONCE IV 02/11/20 07:45 02/11/20 19:56 02/11/20 08:42 Justifications for Admission Other Justification ANNY ZAPATA III DO Feb 11, 2020 11:20
[2020-02-11] MEDS ORDERED: FUROSEMIDE 40 MG TABLET. PO PRN (13:00)
[2020-02-11] MEDS ORDERED: POTASSIUM CHLORIDE 20 MEQ TABLET.ER. PO ONE (13:00)
--- NOTE | 2020-02-11 13:02 | PDOC ---
[facility] Progress Notes Date and Time Date of Service 02/11/2020 Time of Evaluation 1100 Subjective Subjective: No Chest Pain, No shortness of breath, No Palpitations Vitals Vitals Vital Signs Date Time Temp Pulse Resp B/P (MAP) Pulse Ox O2 Delivery O2 Flow Rate FiO2 02/11/20 12:00 72 16 105/72 (83) Room Air 02/11/20 10:00 96 02/11/20 08:00 98.6 98.6 02/10/20 13:33 2.0 Weight Weight [ ] Input and Output Intake and Output Intake and Output 02/11/20 07:00 Intake Total 1263 ml Output Total 1075 ml Balance 188 ml Intake Oral 400 ml IV Total 863 ml Output Urine Total 1075 ml Laboratory Labs Laboratory Tests Test 02/10/20 16:40 02/10/20 22:10 02/11/20 09:35 Troponin I Quantitative 150.540 ng/mL (0.000-0.055) 84.377 ng/mL (0.000-0.055) White Blood Count 7.3 x10^3/uL (4.0-11.0) Red Blood Count 4.71 x10^6/uL (4.30-5.70) Hemoglobin 15.1 g/dL (13.0-17.5) Hematocrit 43.8 % (39.0-53.0) Mean Corpuscular Volume 93 fL (79-100) Mean Corpuscular Hemoglobin 32 pg (25-35) Mean Corpuscular Hemoglobin Concent 34 g/dL (31-37) Red Cell Distribution Width 13.1 % (11.5-14.5) Platelet Count 146 x10^3/uL (140-400) Neutrophils (%) (Auto) 72 % (31-73) Lymphocytes (%) (Auto) 21 % (24-48) Monocytes (%) (Auto) 6 % (0-9) Eosinophils (%) (Auto) 1 % (0-3) Basophils (%) (Auto) 1 % (0-3) Neutrophils # (Auto) 5.3 x10^3/uL (1.8-7.7) Lymphocytes # (Auto) 1.5 x10^3/uL (1.0-4.8) Monocytes # (Auto) 0.4 x10^3/uL (0.0-1.1) Eosinophils # (Auto) 0.1 x10^3/uL (0.0-0.7) Basophils # (Auto) 0.1 x10^3/uL (0.0-0.2) Sodium Level 137 mmol/L (136-145) Potassium Level 3.5 mmol/L (3.5-5.1) Chloride Level 104 mmol/L (98-107) Carbon Dioxide Level 23 mmol/L (21-32) Anion Gap 10 (6-14) Blood Urea Nitrogen 13 mg/dL (8-26) Creatinine 1.2 mg/dL (0.7-1.3) Estimated GFR (Cockcroft-Gault) 63.1 Glucose Level 117 mg/dL (70-99) Calcium Level 8.9 mg/dL (8.5-10.1) Magnesium Level 2.0 mg/dL (1.8-2.4) Triglycerides Level 102 mg/dL (0-150) Cholesterol Level 235 mg/dL (0-200) LDL Cholesterol, Calculated 184 mg/dL (0-100) VLDL Cholesterol, Calculated 20 mg/dL (0-40) Non-HDL Cholesterol Calculated 204 mg/dL (0-129) HDL Cholesterol 31 mg/dL (40-60) Cholesterol/HDL Ratio 7.6 Thyroid Stimulating Hormone (TSH) 1.039 uIU/mL (0.358-3.74) Physical Exam HEENT: Neck Supple W Full Motion Chest: Symmetric LUNGS: Clear to Auscultation Heart: S1S2, RRR (SR) Abdomen: Soft N/T Extremities: No Edema, No Calf Tenderness Neurology: alert, oriented, follow commands Other Exams right groin arteriotomy site intact, no erythema or swelling, neurovascular status to bilateral LE intact Assessment Assessment 1. Anterior STEMI: S/P PCI/ROXI to mid LAD 2. ICM: EF 25%, compensated 3. HLP 4. Tobaccoism Recommendations 1. ASA/plavix. 2, Lipitor, start on toprol and lisinopril. BP at low end currently but stable. No CHF symptoms. Lasix PRN K replacement today 3. Cardiac rehab. HF education. Dietitian consult. 4. [facility] as an outpt for SCD prevention and reeval for AICD consideration in 3 months after sufficient optimization 5. Smoking cessation 6. 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 He will go back to [place] once discharge. Discussed cardiology referral over there and need for cardiac rehab. Justicifation of Admission Dx: Justifications for Admission: Justification of Admission Dx: Yes IN: Acute STEMI AGA CANALES APRN Feb 11, 2020 13:01
--- NOTE | 2020-02-11 13:18 | NUR ---
transfered to rm 208 per w/c in stable cond Had phone. Rtgroin intact. DR Caal talked with him about no driving his truck back to [place]. He is in contact with his sister from [facility]
--- NOTE | 2020-02-11 15:31 | CARD ---
MR#: [id number] Date of Study: 02/11/2020 Ordering Physician: ROMAN SHARIF, Referring Physician: ROMAN SHARIF, Tech: Lara Colindres [facility] APPROVED REPORT EXAM: Two-dimensional and M-mode echocardiogram with Doppler and color Doppler. Other Information Quality : Good INDICATION STEMI 2D DIMENSIONS RVDd2.5 (2.9-3.5cm)Left Atrium(2D)2.7 (1.6-4.0cm) IVSd1.0 (0.7-1.1cm)Aortic Root(2D)3.4 (2.0-3.7cm) LVDd5.0 (3.9-5.9cm)LVOT Diameter2.4 (1.8-2.4cm) PWd0.8 (0.7-1.1cm)LVDs4.5 (2.5-4.0cm) FS (%) 9.6 %SV24.7 ml Aortic Valve AoV Peak Rafael.107.9cm/sAoV VTI20.7cm AO Peak GR.4.7mmHgLVOT VTI 13.50cm AO Mean GR.3mmHgAVA (VTI)2.90cm2 Mitral Valve MV E Juszlxiq93.3cm/sMV DECEL [id number] MV A Clhclrpj80.7cm/sE/A Ratio0.9 TDI Lateral E' P. V3.60cm/sMedial E' P. V5.21cm/s E/Lateral E'12.6E/Medial E'8.7 Tricuspid Valve TR P. Psbylgca153wj/sRAP [id number] TR Peak Gr.23mdLvZEKX46xvGc Pulmonary Vein S1 Ggmpxhgh63.1cm/sS2 Wmtmfske11.44cm/s D2 Wafxifys08.4cm/s LEFT VENTRICLE The Left Ventricle is borderline dilated. There is normal left ventricular wall thickness. Left ventr icle systolic function is severely impaired. The Ejection Fraction is estimated at 25-30%. There is s evere hypokinesis of the distal septum, distal lateral wall and apex. Transmitral Doppler flow patter n is Grade I-abnormal relaxation pattern. RIGHT VENTRICLE The right ventricle is normal size. The right ventricular systolic function is normal. ATRIA The left atrium size is normal. The right atrium size is normal. The interatrial septum is intact wit h no evidence for an atrial septal defect or patent foramen ovale as noted on 2-D or Doppler imaging. AORTIC VALVE The aortic valve is normal in structure and function. Doppler and Color Flow revealed no significant aortic regurgitation. There is no significant aortic valvular stenosis. MITRAL VALVE The mitral valve is normal in structure and function. There is no evidence of mitral valve prolapse. There is no mitral valve stenosis. Doppler and Color Flow revealed trace mitral valve regurgitation. TRICUSPID VALVE The tricuspid valve is normal in structure and function. Doppler and Color Flow revealed trace tricus pid regurgitation. The PA pressure was estimated at 27 mmHg. There is no tricuspid valve stenosis. PULMONIC VALVE The pulmonic valve is not well visualized. Doppler and Color Flow revealed trace pulmonic valvular re gurgitation. There is no pulmonic valvular stenosis. GREAT VESSELS The aortic root is normal in size. The ascending aorta is normal in size. The IVC is dilated and camilla apses >50% with inspiration. PERICARDIAL EFFUSION There is no evidence of significant pericardial effusion. Critical Notification Critical Value: No <Conclusion> The Left Ventricle is borderline dilated. Left ventricle systolic function is severely impaired. The Ejection Fraction is estimated at 25-30%. There is severe hypokinesis of the distal septum, distal lateral wall and apex. Doppler and Color Flow revealed no significant aortic regurgitation. There is no significant aortic valvular stenosis. Doppler and Color Flow revealed trace mitral valve regurgitation. Doppler and Color Flow revealed trace tricuspid regurgitation. The PA pressure was estimated at 27 mmHg. Signed by : Roman Sharif MD Electronically Approved : 02/11/2020 15:30:57
[2020-02-11] MEDS: ATORVASTATIN CALCIUM 40 MG TABLET. PO SCH (20:54)
[2020-02-12 02:52] VITALS: BP 118/59
[2020-02-12] MEDS: HEPARIN for SUB-Q USE 5,000 UNIT/ML VIAL. SQ SCH ×2 (06:10→14:00)
[2020-02-12 07:00] VITALS: BP 101/69
[2020-02-12] MEDS: CLOPIDOGREL BISULFATE 75 MG TABLET PO SCH (08:22)
[2020-02-12] MEDS: ASPIRIN ENTERIC COATED 81 MG TABLET.DR. PO SCH (08:22)
[2020-02-12] MEDS: LISINOPRIL 5 MG TABLET. PO SCH (08:23)
[2020-02-12] MEDS: DOCUSATE SODIUM 100 MG CAPSULE. PO SCH ×2 (08:23→17:44)
--- NOTE | 2020-02-12 08:38 | PDOC ---
CARDIO Progress Notes Date and Time Date of Service 02/12/2020 Time of Evaluation 1020 Subjective Subjective: No Chest Pain, No shortness of breath, No Palpitations Vitals Vitals Vital Signs Date Time Temp Pulse Resp B/P (MAP) Pulse Ox O2 Delivery O2 Flow Rate FiO2 02/12/20 08:23 93 101/69 02/12/20 02:52 98.1 18 95 Room Air 98.1 Weight Weight [ ] Input and Output Intake and Output Intake and Output 02/12/20 07:00 Intake Total 430 ml Output Total 200 ml Balance 230 ml Intake Oral 430 ml Output Urine Total 200 ml Laboratory Labs Laboratory Tests Test 02/11/20 09:35 White Blood Count 7.3 x10^3/uL (4.0-11.0) Red Blood Count 4.71 x10^6/uL (4.30-5.70) Hemoglobin 15.1 g/dL (13.0-17.5) Hematocrit 43.8 % (39.0-53.0) Mean Corpuscular Volume 93 fL (79-100) Mean Corpuscular Hemoglobin 32 pg (25-35) Mean Corpuscular Hemoglobin Concent 34 g/dL (31-37) Red Cell Distribution Width 13.1 % (11.5-14.5) Platelet Count 146 x10^3/uL (140-400) Neutrophils (%) (Auto) 72 % (31-73) Lymphocytes (%) (Auto) 21 % (24-48) Monocytes (%) (Auto) 6 % (0-9) Eosinophils (%) (Auto) 1 % (0-3) Basophils (%) (Auto) 1 % (0-3) Neutrophils # (Auto) 5.3 x10^3/uL (1.8-7.7) Lymphocytes # (Auto) 1.5 x10^3/uL (1.0-4.8) Monocytes # (Auto) 0.4 x10^3/uL (0.0-1.1) Eosinophils # (Auto) 0.1 x10^3/uL (0.0-0.7) Basophils # (Auto) 0.1 x10^3/uL (0.0-0.2) Sodium Level 137 mmol/L (136-145) Potassium Level 3.5 mmol/L (3.5-5.1) Chloride Level 104 mmol/L (98-107) Carbon Dioxide Level 23 mmol/L (21-32) Anion Gap 10 (6-14) Blood Urea Nitrogen 13 mg/dL (8-26) Creatinine 1.2 mg/dL (0.7-1.3) Estimated GFR (Cockcroft-Gault) 63.1 Glucose Level 117 mg/dL (70-99) Calcium Level 8.9 mg/dL (8.5-10.1) Magnesium Level 2.0 mg/dL (1.8-2.4) Triglycerides Level 102 mg/dL (0-150) Cholesterol Level 235 mg/dL (0-200) LDL Cholesterol, Calculated 184 mg/dL (0-100) VLDL Cholesterol, Calculated 20 mg/dL (0-40) Non-HDL Cholesterol Calculated 204 mg/dL (0-129) HDL Cholesterol 31 mg/dL (40-60) Cholesterol/HDL Ratio 7.6 Thyroid Stimulating Hormone (TSH) 1.039 uIU/mL (0.358-3.74) Physical Exam HEENT: Neck Supple W Full Motion Chest: Symmetric LUNGS: Clear to Auscultation Heart: S1S2, RRR (SR without significant ectopies) Abdomen: Soft N/T Extremities: No Edema, No Calf Tenderness Neurology: alert, oriented, follow commands Assessment Assessment 1. Anterior STEMI: S/P PCI/ROXI to mid LAD 2. ICM: EF 25%, compensated. BP is well controlled 3. HLP 4. Tobaccoism Recommendations 1. 325 ECASA/plavix 75 mg daily. May convert to ECASA 81 and brilinta bid if he does have health ins. SS consult for verification 2, Lipitor, toprol XL, lisinopril. Lasix PRN for CHF 3. Cardiac rehab. HF education. Dietitian consult. 4. Lifevest for SCD prevention and reeval for AICD consideration in 3 months after sufficient optimization 5. Smoking cessation 6. 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 He will stay with his sister first for a 1-2 weeks then go back to [place] once discharge. Discussed cardiology referral over there and need for cardiac rehab. Justicifation of Admission Dx: Justifications for Admission: Justification of Admission Dx: Yes NH: Acute STEMI AGA CANALES [employer]UCK [employer] Feb 12, 2020 08:38
[2020-02-12] MEDS ORDERED: ASPIRIN ENTERIC COATED 325 MG TABLET.DR. PO SCH (08:45)
[2020-02-12] MEDS ORDERED: METOPROLOL SUCC 24HR ER 25 MG TAB.ER.24H. PO SCH (09:00)
--- NOTE | 2020-02-12 10:46 | PDOC ---
[employer] PROGRESS NOTE Date of Service DOS: DATE: 02/12/20 TIME: 10:35 Chief Complaint Chief Complaint Acute myocardial infarction with max troponin 150 Status post cardiac cath with stent placement History of Present Illness History of Present Illness 02/12/2020 Patient seen and examined Patient in NAD Clean, dry dressings present on right inguinal crease Chart reviewed Discussed with case management Discussed with RN 02/11/2020 Patient seen and examined in the ICU His troponin peaked at 150 is now trending down to 83 Chart reviewed Discussed with case management Discussed with RN Vitals/I&O Vitals/I&O: Vital Signs Date Time Temp Pulse Resp B/P (MAP) Pulse Ox O2 Delivery O2 Flow Rate FiO2 02/12/20 08:23 93 101/69 02/12/20 08:00 Room Air 02/12/20 07:00 98.5 16 94 98.5 I & O 02/11/20 02/11/20 02/12/20 15:00 23:00 07:00 Intake Total 180 ml 250 ml Output Total 200 ml Balance 180 ml 50 ml Physical Exam General: moderate distress Heart: Regular rate Abdomen: Normal bowel sounds Extremities: No clubbing, No cyanosis, No edema Skin: No rashes, No breakdown Review of Systems Review of Systems: Patient denies pain. Patient denies nausea. Assessment and Plan Assessmemt and Plan Problems Medical Problems: (1) STEMI (ST elevation myocardial infarction) Status: Acute Assessment STEMI Hyperlipidemia Plan Prescribed atorvastatin Prescribed lisinopril Prescribed clopidogrel Prescribed metoprolol Appreciate cardiology input on LifeVest device Will discharge today Comment Review of Relevant I have reviewed the following items hari (where applicable) has been applied. Medications: Current Medications Medications (Trade) Dose Ordered Sig/Les Route PRN Reason Start Time Stop Time Status Last Admin Dose Admin Potassium Chloride (Klor-Con) 40 meq 1X ONCE PO 02/11/20 13:00 02/11/20 13:01 DC 02/11/20 14:50 Metoprolol Succinate (Toprol Xl) 25 mg DAILY PO 02/12/20 09:00 02/12/20 08:22 Justifications for Admission Other Justification ANNY ZAPATA III DO Feb 12, 2020 10:46
[2020-02-12 11:00] VITALS: BP 102/70
--- NOTE | 2020-02-12 12:10 | NUR ---
SS following up with discharge planning. SS reviewed pt chart and discussed with pt RN. Pt is currently on room air. Discharge order on the chart for home with self care. Pt's health insurance now documented. Order for Life Vest received. SS phoned and faxed order and clinical to [facility] Vest, ; fax [phone]. Subhash from [facility] to follow up. SS will continue to follow for discharge planning.
[2020-02-12] MEDS ORDERED: ASPIRIN ENTERIC COATED 81 MG TABLET.DR. PO ONE (12:30)
[2020-02-12] MEDS ORDERED: ASPI-630 PO (14:23)
[2020-02-12] MEDS ORDERED: FURO40TA4 PO (14:25)
[2020-02-12] MEDS ORDERED: METO-239 PO (14:26)
[2020-02-12] MEDS ORDERED: LISI-338 PO (14:27)
[2020-02-12] MEDS ORDERED: ATOR40TA PO (14:28)
[2020-02-12] MEDS ORDERED: TICA90TA PO (14:28)
[2020-02-12 14:57] VITALS: BP 119/73
--- NOTE | 2020-02-12 15:40 | NUR ---
SS following up with discharge planning. SS received notification from Subhash at [facility]est, stating that Life Vest will be delivered between 1800 and 1830 today.
[2020-02-12] MEDS: ATORVASTATIN CALCIUM 40 MG TABLET. PO SCH (18:24)
--- NOTE | 2020-02-12 19:29 | NUR ---
Discharge Note: KWAME LEWIS [place] Discharge instructions and discharge home medications reviewed with Patient and a copy given. All questions have been answered and understanding verbalized. Patient instructed to follow up with link trainer operator and primary doctor in [place]. Prescriptions for new medications provided to patient. Life vest education and supplies taken with patient upon discharge. Education provided on Lasix PRN, Toprolol XL, Lisinopril, Lipitor, ASA, and Brilinta. Post cardiac catheterization discharge instructions given. Right groin cath site clean, dry, intact on discharge and no complaints of pain. The following instructions and handouts were given: Heart failure, Daily weight, 2L fluid restriction, smoking cessation, BP management, Cardiac rehab, and how to take blood pressure. Discontinued lines and drains: Peripheral IV intact. Patient discharged to Home or Self Care with Self via Ambulated
[2020-02-13] MEDS ORDERED: TICAGRELOR 90 MG TABLET. PO SCH (09:00)
== END 2020-02-12 19:34 | disposition home or self-care (01) | DRG 247 ==
LOC: ER 11:10 → 1 WEST ICU 11:20 → ER 11:21 → 1 WEST ICU 12:31 → 2 NORTH 02-11 14:00
PROVIDERS: ADMIT Family Medicine; ATTEND Family Medicine
PROC: 027034Z Dilation of Coronary Artery, One Artery with Drug-eluting Intraluminal Device, Percutaneous Approach (ICD-10-PCS; principal; 2020-02-10)
PROC: 4A023N7 Measurement of Cardiac Sampling and Pressure, Left Heart, Percutaneous Approach (ICD-10-PCS; 2020-02-10)
PROC: B2111ZZ Fluoroscopy of Multiple Coronary Arteries using Low Osmolar Contrast (ICD-10-PCS; 2020-02-10)
DX: I21.09 ST elevation (STEMI) myocardial infarction involving other coronary artery of anterior wall (principal); E78.5 Hyperlipidemia, unspecified; K30 Functional dyspepsia; I25.9 Chronic ischemic heart disease, unspecified; I25.5 Ischemic cardiomyopathy; F17.210 Nicotine dependence, cigarettes, uncomplicated; I10 Essential (primary) hypertension; Z71.6 Tobacco abuse counseling; Z82.49 Family history of ischemic heart disease and other diseases of the circulatory system
CPT/HCPCS: 92941; 93454; G0269; 36415; 80048; 80053; 80061; 83690; 83735; 83880; 84443; 84484; 85025; 85610; 85730; 92928; 93005; 93306; 93458; 99152; 99153; C1760; C1769; C1887; C1892; J0583; J1265; J1644; J2250; J2405; J3010; J3490; J7030; Q9967; C1725; C1771; C1874; G0378